=== PATIENT | female | born 1955 | race Caucasian/White ===

== ENCOUNTER → 2016-09-02 | Outpatient (CLI) | payer OTHER ==
[~2016-09-02] MED LIST: DILANTIN100 MG PO; FLEXERIL5 MG PO; MEDROL DOSEPAK4 MG PO; NORCO 5-325 TA1 EACH PO; PERCOCET 325 MG1 TA2 PO; TYLENOL W/CODEI1 TA2 PO; VITAMIN D-32000 UNIT PO; VITAMIN D1000 IU PO; VOLTAREN50 M1 PO
== END | disposition home or self-care (01) ==
LOC: LAB 11:03
DX: R56.9 Unspecified convulsions (principal)

== ENCOUNTER → 2017-01-25 | Outpatient (CLI) | payer OTHER | END | disposition home or self-care (01) | LOC: MAMMO 12:33 | DX: Z12.31 Encounter for screening mammogram for malignant neoplasm of breast (principal); Z13.820 Encounter for screening for osteoporosis; M81.0 Age-related osteoporosis without current pathological fracture ==

== ENCOUNTER → 2018-02-08 | Outpatient (CLI) | payer OTHER | END | disposition home or self-care (01) | LOC: RAD 02-07 13:00 → MAMMO 02-07 15:00 → RAD 13:00 | DX: Z12.31 Encounter for screening mammogram for malignant neoplasm of breast (principal) ==

== ENCOUNTER → 2018-03-06 | Outpatient (CLI) | payer OTHER | END | disposition home or self-care (01) | LOC: RAD 11:28 | DX: M47.896 Other spondylosis, lumbar region (principal) ==

== ENCOUNTER → 2020-05-06 | Outpatient (CLI) | payer OTHER | END | disposition home or self-care (01) | LOC: MAMMO 15:59 | PROVIDERS: ATTEND Physician Assistant | DX: Z12.31 Encounter for screening mammogram for malignant neoplasm of breast (principal) ==

== ENCOUNTER → 2020-05-07 | Outpatient (CLI) | payer OTHER ==
[2020-05-07 14:20] LABS: BASO # 0.1 10*3/uL (0.0-0.1); BASO % 1.1 % (0.0-1.0); EOS # 0.1 10*3/uL (0.0-0.4); EOS % 2.5 % (1.0-4.0); LYMPH # 1.2 10*3/uL (1.3-4.4); LYMPH % 28.3 % (27.0-41.0); MEAN CELL VOLUME 88.7 fl (81.0-99.0); MEAN CORPUSCULAR HGB 30.9 pg (27.0-31.0); MEAN CORPUSCULAR HGB CONC 34.9 g/dl (33.0-37.0); MEAN PLATELET VOLUME 10.4 fl (9.6-12.3); MONO # 0.5 10*3/uL (0.1-1.0); MONO % 10.3 % (3.0-9.0); NEUT # 2.5 10*3/uL (2.3-7.9); NEUT % 57.6 % (47.0-73.0); PLATELET COUNT AUTOMATED 202 10*3/uL (130-400); RED CELL DISTRI WIDTH 11.8 % (0-14.5); WHITE BLOOD COUNT 4.4 10*3/uL (4.8-10.8)
[2020-05-07 14:36] LABS: ALBUMIN 4.2 gm/dl (3.1-4.5); BUN 18 mg/dl (7-24); CHLORIDE 107 mmol/L (98-107); CREATININE 0.93 mg/dL (0.55-1.02); POTASSIUM 4.1 mmol/L (3.5-5.1); SGOT/AST 22 IU/L (3-35); SGPT/ALT 30 U/L (12-78); SODIUM 140 mmol/L (136-145); TOTAL PROTEIN 8.1 gm/dL (6.4-8.2)
[2020-05-07 14:37] LABS: ALKALINE PHOSPHATASE 91 U/L (45-117)
== END | disposition home or self-care (01) ==
LOC: LAB 13:31
PROVIDERS: Psychiatry & Neurology Neurology; ATTEND Physician Assistant
DX: Z51.81 Encounter for therapeutic drug level monitoring (principal); E78.00 Pure hypercholesterolemia, unspecified; G40.209 Localization-related (focal) (partial) symptomatic epilepsy and epileptic syndromes with complex partial seizures, not intractable, without status epilepticus

== ENCOUNTER 2021-12-05 06:32 | Emergency (ER) | payer OTHER ==
[~2021-12-05] VITALS: Wt 85.3 kg
[2021-12-05 06:45] VITALS: BP 161/91
[2021-12-05] MEDS ORDERED: OXCARBAZEPINE150 MG PO (07:02)
== END 2021-12-05 09:04 | disposition home or self-care (01) ==
LOC: ED 06:32
DX: S50.812A Abrasion of left forearm, initial encounter (principal); S09.90XA Unspecified injury of head, initial encounter; Z79.899 Other long term (current) drug therapy; Z98.51 Tubal ligation status; Z98.890 Other specified postprocedural states; W18.39XA Other fall on same level, initial encounter; Y93.89 Activity, other specified; Y92.89 Other specified places as the place of occurrence of the external cause; Y99.8 Other external cause status

== ENCOUNTER → 2023-11-05 | Outpatient (CLI) | payer OTHER ==
[~2023-11-05] MED LIST changes: +OXCARBAZEPINE150 MG PO
[2023-11-05 10:39] LABS: BASO # 0.1 10*3/uL (0.0-0.1); BASO % 0.8 % (0.0-1.0); EOS # 0.1 10*3/uL (0.0-0.4); EOS % 2.3 % (1.0-4.0); HEMATOCRIT 45.7 % (37.0-47.0); LYMPH # 1.5 10*3/uL (1.3-4.4); MEAN CELL VOLUME 92.1 fl (81.0-99.0); MEAN CORPUSCULAR HGB 30.8 pg (27.0-31.0); MEAN CORPUSCULAR HGB CONC 33.5 g/dl (33.0-37.0); MONO # 0.5 10*3/uL (0.1-1.0); MONO % 7.6 % (3.0-9.0); NEUT # 3.9 10*3/uL (2.3-7.9); PLATELET COUNT AUTOMATED 230 10*3/uL (130-400); RED BLOOD COUNT 4.96 10*6/uL (4.10-5.10); RED CELL DISTRI WIDTH 12.4 % (0-14.5)
[2023-11-05 11:05] LABS: ALKALINE PHOSPHATASE 88 U/L (46-116); BUN 13 mg/dl (9-23); CHLORIDE 107 mmol/L (98-107); CHOLESTEROL 207 mg/dL (<200); LDL CHOLESTEROL 86 mg/dL (9-159); POTASSIUM 4.5 mmol/L (3.4-5.1); SGPT/ALT 16 U/L (5-49); TOTAL PROTEIN 7.5 gm/dL (6.0-8.0); TRIGLYCERIDES 335 mg/dl (<150)
== END | disposition home or self-care (01) ==
LOC: LAB 10:16
DX: E78.2 Mixed hyperlipidemia (principal); R73.03 Prediabetes

== ENCOUNTER 2025-03-25 15:30 | Emergency (ER) | payer OTHER ==
[~2025-03-25] VITALS: Ht 157.4 cm; Wt 84.8 kg
[2025-03-25 15:44] VITALS: BP 152/112
[2025-03-25] MEDS ORDERED: FAMOTIDINE 50 ML IV ONE (15:55)
[2025-03-25] MEDS ORDERED: Ondansetron Hydrochloride 4 MG/2 ML VIAL IV ONE (15:55)
[2025-03-25 16:08] LABS: BASO # 0.1 10*3/uL (0.0-0.1); BASO % 0.8 % (0.0-1.0); EOS # 0.2 10*3/uL (0.0-0.4); EOS % 2.8 % (1.0-4.0); MEAN CELL VOLUME 93.0 fl (81.0-99.0); MEAN CORPUSCULAR HGB 31.0 pg (27.0-31.0); MEAN PLATELET VOLUME 10.0 fl (9.6-12.3); MONO # 0.6 10*3/uL (0.1-1.0); MONO % 8.8 % (3.0-9.0); NEUT # 4.4 10*3/uL (2.3-7.9); NEUT % 62.3 % (47.0-73.0); NUCLEATED RED BLOOD CELL 0.0 % (0.0-0.0); NUCLEATED RED BLOOD CELL 0.0 10*3/uL (0.0-0.0); PLATELET COUNT AUTOMATED 232 10*3/uL (130-400); RED CELL DISTRI WIDTH 12.4 % (0-14.5)
[2025-03-25 16:27] LABS: BUN 21 mg/dl (9-23)
== END 2025-03-25 17:11 | disposition home or self-care (01) ==
LOC: ED 15:30
PROVIDERS: Emergency Medicine
DX: R07.89 Other chest pain (principal); Z79.899 Other long term (current) drug therapy; Z98.51 Tubal ligation status; Z98.890 Other specified postprocedural states